=== PATIENT | female | born 1975 | race Caucasian/White ===

== ENCOUNTER 2017-06-21 09:35 | Day surgery (SDC) | payer BC ==
[2017-06-21 10:35] LABS: Hematocrit 38.6 % (36.0-47.0)
[2017-06-21] MEDS ORDERED: Fentanyl 250 MCG/5 ML VIAL ONE (11:07)
[2017-06-21] MEDS ORDERED: Morphine 10 MG/ML VIAL ONE (11:07)
[2017-06-21] MEDS ORDERED: Propofol 200 MG/20 ML VIAL ONE (11:24)
[2017-06-21] MEDS ORDERED: Succinylcholine Chloride 20 MG/ML 10 ml SYRINGE FS ONE (11:24)
[2017-06-21] MEDS ORDERED: Lidocaine 1% PF 5 ML VIAL ONE (11:24)
[2017-06-21] MEDS ORDERED: Dexamethasone 20 MG/5 ML VIAL ONE (11:24)
[2017-06-21] MEDS ORDERED: Ondansetron HCl/PF 4 MG/2 ML Vial ONE (11:24)
[2017-06-21] MEDS ORDERED: Fentanyl 100 MCG/2 ML VIAL ONE ×3 (12:10→13:18)
--- NOTE | 2017-06-21 13:12 | OP ---
PREOPERATIVE DIAGNOSES: Kriss has chronic tonsillitis, recurrent tonsillitis. POSTOPERATIVE DIAGNOSES: Kriss has chronic tonsillitis, recurrent tonsillitis. PROCEDURE PERFORMED: Tonsillectomy over 12 years of age. PROCEDURE IN DETAIL: After consent was obtained, the patient was identified, brought to the operatin g room, and placed on the operating table in the supine position. General endotracheal anesthesia an d intravenous access was obtained and we proceeded with positioning the patient for oropharyngeal mirta manjit. Oropharyngeal exposure was obtained with a Caroline-Dhiraj mouth gag after a head drape was placed and secured with a towel clip. The Caroline-Dhiraj mouth gag was then suspended from the Swann tray and palatal elevation was achieved with a red rubber catheter. The right tonsil was addressed first. We used a curved Allis to grasp the tonsil and retract it medially as an anterior pillar incision was m humberto with a #12 blade. The retrotonsillar fascial plane was then established and blunt dissection was performed with the suction cautery. Blood vessels were anticipated, identified, and cauterized as t hey were encountered. Ultimately, dissection was carried to the posterior tonsillar pillar mucosa wh ich was incised hemostatically, as well as the base of tongue connection. The tonsil was then passed off as a specimen and bleeding points within the tonsillar bed were cauterized under direct visualiz ation. We subsequently turned our attention to the contralateral side, where using a similar techniq ue, a near identical procedure was performed. Again, the tonsil was grasped and retracted medially w ith a curved Allis as an anterior pillar incision was made with a #12 blade. The retrotonsillar fasc ial plane was established and while the anterior pillar was retracted medially, the hemostatic blunt dissection of the tonsil with a suction cautery was performed with blood vessels anticipated, identif ied, and cauterized as they were encountered. Again, dissection continued to the base of tongue and posterior tonsillar pillar mucosa which was incised in a hemostatic fashion. The tonsillar beds were then carefully inspected and bleeding points were identified and cauterized with a suction cautery. After this portion of the procedure, hemostasis was completely obtained. The patient's oral cavity was copiously irrigated with iced saline and subsequently suctioned. We then used the red rubber cat heter to suction the gastric contents and the patient was subsequently aroused, awakened, and extubat ed without difficulty and transported to the recovery room in stable condition. There were no compli cations. FINDINGS: Very cryptic inflamed tonsils.
[2017-06-21] MEDS ORDERED: Hydrocodone-Acetamin 15 ML UDCUP ONE (14:08)
== END 2017-06-21 14:47 | disposition home or self-care (01) ==
LOC: SDC 09:35
PROVIDERS: ATTEND Anesthesiology
PROC: 0CTPXZZ Resection of Tonsils, External Approach (ICD-10-PCS; principal; 2017-06-21)
DX: J03.91 Acute recurrent tonsillitis, unspecified (principal); J35.01 Chronic tonsillitis; Z88.5 Allergy status to narcotic agent; Z90.49 Acquired absence of other specified parts of digestive tract; Z98.890 Other specified postprocedural states
CPT/HCPCS: 36415; 84703; 85014; 88304; 96374; J0131; J1100; J2001; J2270; J2405; J2704; J3010